=== PATIENT | female | born 1995 | race Caucasian/White ===

== ENCOUNTER 2017-03-25 20:51 | Emergency (ER) | payer OTHER ==
[2017-03-25 21:31] VITALS: BP 118/75
[2017-03-25] MEDS ORDERED: Amoxicillin CAP* 250 MG PO ONE (21:37)
--- NOTE | 2017-03-25 21:44 | ED ---
Throat Pain/Nasal Congestion - HPI Summary HPI Summary: 21 female presents with complaints of left ear pain that began today 03/25/17 suddenly. Patient denies any discharge or significant hearing loss. Describes pain as pressure and aching. Admits to feeling feverish but did not take her temp. Took Advil around 16:30 which gave her some relief. Patient admits to having some pressure in sinuses but denies nasal congestion, sore throat, nausea , headache, dizziness and cough. Denies any other complaints at this time. No PMHx. - History of Current Complaint Chief Complaint: EDEarPain Time Seen by Provider: 03/25/17 21:06 Hx Obtained From: Patient Onset/Duration: Sudden Onset, Lasting Hours, Worse Since Severity: Moderate Associated Signs And Symptoms: Positive: Sinus Discomfort Cough: None - Allergies/Home Medications Allergies/Adverse Reactions: Allergies Allergy/AdvReac Type Severity Reaction Status Date / Time No Known Allergies Allergy Verified 03/25/17 21:26 PMH/Surg Hx/FS Hx/Imm Hx Endocrine/Hematology History: Denies: Hx Diabetes Respiratory History: Denies: Hx Asthma - Surgical History Surgery Procedure, Year, and Place: none - Immunization History Immunizations Up to Date: Yes Infectious Disease History: No Infectious Disease History: Denies: Traveled Outside the [place] in Last 30 Days - Family History Known Family History: Positive: None - Social History Alcohol Use: None Substance Use Type: Reports: None Smoking Status (MU): Never Smoked Tobacco Review of Systems Constitutional: Negative Eyes: Negative Positive: Ear Ache Cardiovascular: Negative Respiratory: Negative Gastrointestinal: Negative Skin: Negative Neurological: Negative All Other Systems Reviewed And Are Negative: Yes Physical Exam Triage Information Reviewed: Yes Vital Signs On Initial Exam: Initial Vitals Temp Pulse Resp BP Pulse Ox 98.5 F 82 18 132/73 100 03/25/17 20:52 03/25/17 20:52 03/25/17 20:52 03/25/17 20:52 03/25/17 20:52 Vital Signs Reviewed: Yes Appearance: Positive: Well-Appearing, No Pain Distress, Well-Nourished Skin: Positive: Warm, Skin Color Reflects Adequate Perfusion, Dry Head/Face: Positive: Normal Head/Face Inspection Eyes: Positive: Normal, Conjunctiva Clear ENT: Positive: Hearing grossly normal, Pharyngeal erythema, TMs normal, TM bulging, TM dull, TM red - left TM, normal right Tm, normal EAC b/l. Negative: Nasal congestion, Nasal drainage, Tonsillar swelling, Tonsillar exudate, Trismus , Muffled/hoarse voice Dental: Positive: Cervical Lymphadenopathy Neck: Positive: Supple, Nontender Respiratory/Lung Sounds: Positive: Clear to Auscultation, Breath Sounds Present. Negative: Wheezes Cardiovascular: Positive: Normal, RRR, Pulses are Symmetrical in both Upper and Lower Extremities Bowel Sounds: Positive: Present Musculoskeletal: Positive: Normal, Strength/ROM Intact Neurological: Positive: Normal, Sensory/Motor Intact, Alert, Oriented to Person Place, Time Psychiatric: Positive: Normal Diagnostics - Vital Signs Vital Signs Temp Pulse Resp BP Pulse Ox 03/25/17 21:26 99.7 F 78 125 118/75 99 03/25/17 20:52 98.5 F 82 18 132/73 100 - Laboratory Lab Statement: Any lab studies that have been ordered have been reviewed, and results considered in the medical decision making process. EENT Course/Dx - Course Course Of Treatment: given first dose of amox in ED. continue amox and advil at home. aware of worsening signs and symptoms. return if worse. follow up. - Differential Diagnoses Differential Diagnoses: Barotrauma, Otitis Externa, Otitis Media, Sinusitis, URI /Bronchitis - Diagnoses Provider Diagnoses: Otitis media, left Discharge - Discharge Plan Condition: Stable Disposition: HOME Prescriptions: Amoxicillin CAP* [Amoxicillin 500 MG CAP*] 500 mg PO Q12H #19 cap Patient Education Materials: Otitis Media (ED) Referrals: [facility] [Primary Care Provider] - Additional Instructions: Take prescribed antibiotic as directed until entire dose is finished, even if symptoms improve. Recommend taking probiotics in between doses to replenish normal maryana. Take advil for pain/inflammation and fever. Do not submerge head under water and do not stick anything into ears. If symptoms worsen or do not improve please return. Follow up with PCP.
== END 2017-03-25 21:55 | disposition home or self-care (01) ==
LOC: ED 20:51
DX: H66.92 Otitis media, unspecified, left ear (principal); H92.02 Otalgia, left ear
CPT/HCPCS: 99281; A9270-GY